=== PATIENT | male | born 1980 | race African-American/Black ===

== ENCOUNTER 2019-11-21 11:38 | Inpatient (IN) | payer OTHER ==
[~2019-11-21] VITALS: Ht 177.8 cm; Wt 97.5 kg
[2019-11-21] MEDS ORDERED: fentaNYL PF VIAL 100 MCG/2 ML VIAL IVP PRN (12:45)
[2019-11-21] MEDS: IV NORMAL SALINE 1000ML BAG 1,000 ML IV SCH ×2 (12:45→23:10)
[2019-11-21] MEDS: ONDANSETRON PF 4 MG/2 ML VIAL. IVP PRN (12:46)
[2019-11-21] MEDS: MORPHINE SULFATE 4 MG/ML VIAL. IV PRN ×4 (13:46→22:43)
[2019-11-21 15:00] VITALS: BP 126/71
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
[2019-11-21] MEDS ORDERED: SALIVA STIMULANT AGENT 44ML SPRAY BOTTLE. PO PRN (15:30)
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
[2019-11-21 19:00] VITALS: BP 124/81
[2019-11-21 23:00] VITALS: BP 158/87
[2019-11-22 03:00] VITALS: BP 141/76
[2019-11-22] MEDS: MORPHINE SULFATE 4 MG/ML VIAL. IV PRN ×7 (03:20→23:04)
[2019-11-22 04:22] LABS: BASO % 0 % (0-3); EOS % 0 % (0-3); HEMATOCRIT 43.5 % (39.0-53.0); HEMOGLOBIN 14.7 g/dL (13.0-17.5); LYMPH # 0.8 x10^3/uL (1.0-4.8); LYMPH % 9 % (24-48); MEAN CORPUSCULAR HEMOGLOBIN 32 pg (25-35); MEAN CORPUSCULAR HGB CONC 34 g/dL (31-37); MEAN CORPUSCULAR VOLUME 94 fL (79-100); MONO # 0.7 x10^3/uL (0.0-1.1); MONO % 8 % (0-9); NEUT # 7.5 x10^3/uL (1.8-7.7); NEUT % 82 % (31-73); PLATELET COUNT 162 x10^3/uL (140-400); RED BLOOD COUNT 4.64 x10^6/uL (4.30-5.70); RED CELL DISTRIBUTION WIDTH 13.6 % (11.5-14.5); WHITE BLOOD COUNT 9.1 x10^3/uL (4.0-11.0)
[2019-11-22 04:49] LABS: ALBUMIN 3.2 g/dL (3.4-5.0); ALBUMIN/GLOBULIN RATIO 0.9 (1.0-1.7); CALCIUM 8.5 mg/dL (8.5-10.1); GFR 101.2; POTASSIUM 3.7 mmol/L (3.5-5.1); TOTAL BILIRUBIN 0.6 mg/dL (0.2-1.0); TOTAL PROTEIN 6.9 g/dL (6.4-8.2)
[2019-11-22 07:00] VITALS: BP 135/86
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
--- NOTE | 2019-11-22 08:38 | PDOC ---
DARNELL ALCALA [employer] SYSTEMS TECHNICIAN 11/22/19 0838: SURGICAL PROGRESS NOTE Subjective no flatus or stool pain is a little better Vital Signs Vital Signs Date Time Temp Pulse Resp B/P (MAP) Pulse Ox O2 Delivery O2 Flow Rate FiO2 11/22/19 07:58 Room Air 11/22/19 06:26 14 98 11/22/19 03:00 98.2 87 141/76 (97) 98.2 I&O Intake and Output 11/22/19 07:00 Intake Total 500 ml Output Total 300 ml Balance 200 ml Intake Other 500 ml Output Gastric Drainage Total 300 ml # Voids 4 General: Alert, Oriented X3, Cooperative HEENT: Other (ng in place) Abdomen: Soft, Other (mildly distended ) Labs Laboratory Tests Test 11/22/19 02:50 White Blood Count 9.1 x10^3/uL (4.0-11.0) Red Blood Count 4.64 x10^6/uL (4.30-5.70) Hemoglobin 14.7 g/dL (13.0-17.5) Hematocrit 43.5 % (39.0-53.0) Mean Corpuscular Volume 94 fL (79-100) Mean Corpuscular Hemoglobin 32 pg (25-35) Mean Corpuscular Hemoglobin Concent 34 g/dL (31-37) Red Cell Distribution Width 13.6 % (11.5-14.5) Platelet Count 162 x10^3/uL (140-400) Neutrophils (%) (Auto) 82 % (31-73) Lymphocytes (%) (Auto) 9 % (24-48) Monocytes (%) (Auto) 8 % (0-9) Eosinophils (%) (Auto) 0 % (0-3) Basophils (%) (Auto) 0 % (0-3) Neutrophils # (Auto) 7.5 x10^3/uL (1.8-7.7) Lymphocytes # (Auto) 0.8 x10^3/uL (1.0-4.8) Monocytes # (Auto) 0.7 x10^3/uL (0.0-1.1) Eosinophils # (Auto) 0.0 x10^3/uL (0.0-0.7) Basophils # (Auto) 0.0 x10^3/uL (0.0-0.2) Sodium Level 138 mmol/L (136-145) Potassium Level 3.7 mmol/L (3.5-5.1) Chloride Level 102 mmol/L (98-107) Carbon Dioxide Level 29 mmol/L (21-32) Anion Gap 7 (6-14) Blood Urea Nitrogen 15 mg/dL (8-26) Creatinine 1.0 mg/dL (0.7-1.3) Estimated GFR (Cockcroft-Gault) 101.2 BUN/Creatinine Ratio 15 (6-20) Glucose Level 104 mg/dL (70-99) Calcium Level 8.5 mg/dL (8.5-10.1) Total Bilirubin 0.6 mg/dL (0.2-1.0) Aspartate Amino Transf (AST/SGOT) 30 U/L (15-37) Alanine Aminotransferase (ALT/SGPT) 43 U/L (16-63) Alkaline Phosphatase 80 U/L (46-116) Total Protein 6.9 g/dL (6.4-8.2) Albumin 3.2 g/dL (3.4-5.0) Albumin/Globulin Ratio 0.9 (1.0-1.7) Laboratory Tests Test 11/22/19 02:50 White Blood Count 9.1 x10^3/uL (4.0-11.0) Red Blood Count 4.64 x10^6/uL (4.30-5.70) Hemoglobin 14.7 g/dL (13.0-17.5) Hematocrit 43.5 % (39.0-53.0) Mean Corpuscular Volume 94 fL (79-100) Mean Corpuscular Hemoglobin 32 pg (25-35) Mean Corpuscular Hemoglobin Concent 34 g/dL (31-37) Red Cell Distribution Width 13.6 % (11.5-14.5) Platelet Count 162 x10^3/uL (140-400) Neutrophils (%) (Auto) 82 % (31-73) Lymphocytes (%) (Auto) 9 % (24-48) Monocytes (%) (Auto) 8 % (0-9) Eosinophils (%) (Auto) 0 % (0-3) Basophils (%) (Auto) 0 % (0-3) Neutrophils # (Auto) 7.5 x10^3/uL (1.8-7.7) Lymphocytes # (Auto) 0.8 x10^3/uL (1.0-4.8) Monocytes # (Auto) 0.7 x10^3/uL (0.0-1.1) Eosinophils # (Auto) 0.0 x10^3/uL (0.0-0.7) Basophils # (Auto) 0.0 x10^3/uL (0.0-0.2) Sodium Level 138 mmol/L (136-145) Potassium Level 3.7 mmol/L (3.5-5.1) Chloride Level 102 mmol/L (98-107) Carbon Dioxide Level 29 mmol/L (21-32) Anion Gap 7 (6-14) Blood Urea Nitrogen 15 mg/dL (8-26) Creatinine 1.0 mg/dL (0.7-1.3) Estimated GFR (Cockcroft-Gault) 101.2 BUN/Creatinine Ratio 15 (6-20) Glucose Level 104 mg/dL (70-99) Calcium Level 8.5 mg/dL (8.5-10.1) Total Bilirubin 0.6 mg/dL (0.2-1.0) Aspartate Amino Transf (AST/SGOT) 30 U/L (15-37) Alanine Aminotransferase (ALT/SGPT) 43 U/L (16-63) Alkaline Phosphatase 80 U/L (46-116) Total Protein 6.9 g/dL (6.4-8.2) Albumin 3.2 g/dL (3.4-5.0) Albumin/Globulin Ratio 0.9 (1.0-1.7) Assessment/Plan sbo plan SBFT today BERTA SWANSON MD 11/22/19 1424: SURGICAL PROGRESS NOTE Assessment/Plan Pt seen and examined. Agree with Ms. Alcala's note Pt feels a little better, passed some flatus abd soft, mild TTP SBFT ungoing DARNELL ALCALA APRN Nov 22, 2019 08:38 BERTA SWANSON MD Nov 22, 2019 14:24
[2019-11-22] MEDS ORDERED: CONTRAST GIVEN. MC PRN (08:45)
[2019-11-22] MEDS ORDERED: IOHEXOL 300 MG/ML 100ML VIAL. PO ONE (08:45)
--- NOTE | 2019-11-22 10:19 | RAD ---
AP abdomen radiograph 11/22/2019 CLINICAL HISTORY: History of small bowel obstruction. Two AP supine digital radiographs of the abdomen/pelvis were obtained. Comparison is made to patient's CT scan of the abdomen and pelvis dated 11/21/2019. Air and stool are seen throughout the colon. Air distention of proximal small bowel loops is seen consistent with the patient's history of a small bowel obstruction. This is not significantly changed. Calcifications are seen within the pelvis consistent with phleboliths. The osseous structures are unchanged. IMPRESSION: Findings consistent with a small bowel obstruction, unchanged. Electronically signed by: Claudy English MD (11/22/2019 10:17 AM) [id number]
[2019-11-22 11:00] VITALS: BP 162/103
[2019-11-22] MEDS: IV NORMAL SALINE 1000ML BAG 1,000 ML IV SCH ×2 (11:59→18:11)
--- NOTE | 2019-11-22 14:07 | NUR ---
SW following. Discussed with RN. RN advised pt is from a [facility] pt advised it is still [facility] [place] [facility], and [place] [facility] [place]. RN advised pt's therapeutic case manager, Emily will call at various times to ensure is still here, and will apparently call SW too. Per [facility] pt works 40 hours a week ($14). Pt having imaging done today. SW will continue to follow.
[2019-11-22 15:00] VITALS: BP 132/88
--- NOTE | 2019-11-22 17:48 | RAD ---
Examination: SMALL BOWEL SERIES History: Small bowel obstruction Comparison/Correlation: 11/21/2019 CT abdomen and pelvis with contrast Findings: Small quantity of Omnipaque provided via the NG tube is noted within the gastric fundus on the initial image. The nasogastric tube is not evident involving the lower thoracic esophagus or stomach. Scattered densities which may represent retained contrast within small bowel from previous oral contrast administration noted. Fluoroscopy was not utilized for this exam and no fluoroscopic images were acquired. A total 13 overhead images were acquired. The patient consumed the Omnipaque orally. The distal tip of the NG tube is at the superior cervical esophageal level. No infiltrate involving the partially visualized lung higuera. Distention of the stomach and numerous small bowel loops is evident. Contrast does not progress beyond the right lower quadrant small bowel despite imaging up to 6 hours and 15 minutes. No significant change in transit of bowel is noted since the 1 hour image other than progressive increase in distention of the small bowel and stomach. On the final image obtained at 6 hours and 15 minutes, the stomach is very distended with contrast. Impression: Findings compatible with high-grade right lower quadrant small bowel obstruction. The stomach is very distended with contrast on the final image acquired. The patient's nurse Karen was informed at approximately 4:45 PM on the day of exam regarding the need for an appropriately placed NG tube tube followed by suctioning to reduce the risk of aspiration. Electronically signed by: Ryne Kapoor MD (11/22/2019 5:45 PM) [facility]
[2019-11-22 19:00] VITALS: BP 148/92
--- NOTE | 2019-11-22 22:45 | RAD ---
KUB INDICATION: Nasogastric tube given. COMPARISON: Small bowel series 11/22/2019. FINDINGS: Multiple dilated loops of small bowel measuring up to 4 producing diameter, similar to the prior exam. No free air on this limited supine image. Limited view of the lower chest demonstrates no acute abnormality. IMPRESSION: Nasogastric tube is not visualized. Multiple dilated loops of small bowel similar to the prior exam. Electronically signed by: Carlyle Seaman MD (11/22/2019 10:42 PM) [id number]
[2019-11-22 23:00] VITALS: BP 153/99
[2019-11-23] MEDS: MORPHINE SULFATE 4 MG/ML VIAL. IV PRN ×9 (02:16→22:59)
[2019-11-23] MEDS: ONDANSETRON PF 4 MG/2 ML VIAL. IVP PRN (02:20)
[2019-11-23 03:00] VITALS: BP 140/94
[2019-11-23] MEDS: IV NORMAL SALINE 1000ML BAG 1,000 ML IV SCH ×2 (04:30→14:57)
--- NOTE | 2019-11-23 05:30 | NUR ---
Vomited 1000cc thin green emesis. Refused NG tube. "Actually, I feel better after I threw up."
--- NOTE | 2019-11-23 06:46 | NUR ---
ALVARO ordered for staging technician request.
[2019-11-23 07:00] VITALS: BP 122/87
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
--- NOTE | 2019-11-23 09:53 | NUR ---
SW following. Discussed with RN. Pt refusing NG tube. RN advised pt not ready to discharge today. SW will continue to follow.
--- NOTE | 2019-11-23 09:57 | PDOC ---
DARNELL MAY MACHINE REBUILDER 11/23/19 0957: SURGICAL PROGRESS NOTE Subjective vomiting, ng displaced minimal flatus, no stool Vital Signs Vital Signs Date Time Temp Pulse Resp B/P (MAP) Pulse Ox O2 Delivery O2 Flow Rate FiO2 11/23/19 08:27 94 11/23/19 07:00 97.9 76 18 122/87 (99) Room Air 97.9 I&O Intake and Output 11/23/19 07:00 Intake Total 1300 ml Output Total 1000 ml Balance 300 ml Intake Oral 100 ml Blood Product IV Normal Saline Flush 1200 ml Emesis 1000 ml # Voids 1 General: Alert, Oriented X3, Cooperative Abdomen: Other (distended ) Labs Laboratory Tests Test 11/22/19 02:50 White Blood Count 9.1 x10^3/uL (4.0-11.0) Red Blood Count 4.64 x10^6/uL (4.30-5.70) Hemoglobin 14.7 g/dL (13.0-17.5) Hematocrit 43.5 % (39.0-53.0) Mean Corpuscular Volume 94 fL (79-100) Mean Corpuscular Hemoglobin 32 pg (25-35) Mean Corpuscular Hemoglobin Concent 34 g/dL (31-37) Red Cell Distribution Width 13.6 % (11.5-14.5) Platelet Count 162 x10^3/uL (140-400) Neutrophils (%) (Auto) 82 % (31-73) Lymphocytes (%) (Auto) 9 % (24-48) Monocytes (%) (Auto) 8 % (0-9) Eosinophils (%) (Auto) 0 % (0-3) Basophils (%) (Auto) 0 % (0-3) Neutrophils # (Auto) 7.5 x10^3/uL (1.8-7.7) Lymphocytes # (Auto) 0.8 x10^3/uL (1.0-4.8) Monocytes # (Auto) 0.7 x10^3/uL (0.0-1.1) Eosinophils # (Auto) 0.0 x10^3/uL (0.0-0.7) Basophils # (Auto) 0.0 x10^3/uL (0.0-0.2) Sodium Level 138 mmol/L (136-145) Potassium Level 3.7 mmol/L (3.5-5.1) Chloride Level 102 mmol/L (98-107) Carbon Dioxide Level 29 mmol/L (21-32) Anion Gap 7 (6-14) Blood Urea Nitrogen 15 mg/dL (8-26) Creatinine 1.0 mg/dL (0.7-1.3) Estimated GFR (Cockcroft-Gault) 101.2 BUN/Creatinine Ratio 15 (6-20) Glucose Level 104 mg/dL (70-99) Calcium Level 8.5 mg/dL (8.5-10.1) Total Bilirubin 0.6 mg/dL (0.2-1.0) Aspartate Amino Transf (AST/SGOT) 30 U/L (15-37) Alanine Aminotransferase (ALT/SGPT) 43 U/L (16-63) Alkaline Phosphatase 80 U/L (46-116) Total Protein 6.9 g/dL (6.4-8.2) Albumin 3.2 g/dL (3.4-5.0) Albumin/Globulin Ratio 0.9 (1.0-1.7) Problem List SBO--imaging still concerning for ongoing obstruction will review with BERTA Henderson MD 11/23/19 1104: SURGICAL PROGRESS NOTE Assessment/Plan Pt seen and examined. Agree with Ms. May's note Pt with slightly less pain and passing some flatus, but no stool XR without advancement of contrast will recheck KUB in AM, if not improved plan DARNELL Cortez APRN Nov 23, 2019 09:57 BERTA SWANSON MD Nov 23, 2019 11:04
[2019-11-23 11:00] VITALS: BP 129/90
[2019-11-23 15:00] VITALS: BP 144/89
--- NOTE | 2019-11-23 15:35 | RAD ---
Examination: KUB History: Small bowel obstruction Comparison/Correlation: 11/22/2019 exam Findings: Frontal supine KUB views of the abdomen were obtained. Significant distention of the stomach with contrast is again identified although it is somewhat decreased compared to the previous day. Distended small bowel again is seen. Contrast is not identified within the colon. No significant transit of contrast delineated. Impression: High-grade small bowel obstruction. Electronically signed by: Ryne Kapoor MD (11/23/2019 3:32 PM) [facility]
--- NOTE | 2019-11-23 18:37 | NUR ---
1700 emptied patient emesis bucket. 1200cc dark green/brown liquid emesis with stool odor.
[2019-11-23 19:00] VITALS: BP 124/80
[2019-11-23 23:00] VITALS: BP 116/77
[2019-11-24] VITALS (13 sets, daily range): BP systolic 117–147; BP diastolic 77–89
[2019-11-24] MEDS: MORPHINE SULFATE 4 MG/ML VIAL. IV PRN ×3 (01:11→07:18)
[2019-11-24] MEDS: fentaNYL PF VIAL 100 MCG/2 ML VIAL IVP PRN (02:51)
[2019-11-24] MEDS: IV NORMAL SALINE 1000ML BAG 1,000 ML IV SCH ×5 (02:52→21:05)
--- NOTE | 2019-11-24 06:10 | NUR ---
1600 cc of pea green emisis from Pt this morning. Pt taking medication for pain.
[2019-11-24] MEDS ORDERED: IV RINGERS,LACTATED 1000ML 1,000 ML IV SCH (07:00)
[2019-11-24] MEDS ORDERED: PROCHLORPERAZINE 10 MG/2 ML VIAL. IV PRN (07:00)
[2019-11-24] MEDS ORDERED: fentaNYL PF VIAL 100 MCG/2 ML VIAL IV PRN ×2 (07:00)
[2019-11-24] MEDS ORDERED: ONDANSETRON PF 4 MG/2 ML VIAL. IV PRN (07:00)
[2019-11-24] MEDS ORDERED: HYDROmorphone 2 MG/ML VIAL IV PRN (07:00)
[2019-11-24] MEDS ORDERED: MORPHINE SULFATE 2 MG/ML VIAL. IV PRN (07:00)
[2019-11-24] MEDS ORDERED: LIDOCAINE 1% PF 2 ML VIAL. ID PRN (07:00)
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
--- NOTE | 2019-11-24 08:56 | NUR ---
SW following. Discussed with RN. Pt having surgery today. RN advised no SW needs at this time. SW will continue to follow.
--- NOTE | 2019-11-24 11:14 | NUR ---
Non admin NS on EMAR current bag still infusing.
[2019-11-24] MEDS ORDERED: cefOXitin SODIUM IV Push 2 GM VIAL. IVP ONE (12:15)
--- NOTE | 2019-11-24 12:15 | PDOC ---
SURGICAL PROGRESS NOTE Subjective Pre-Op Note 39 yo M with SBO. Pt without improvement, N/V, min flatus, no stool KUB without significant movement of contrast. TO OR for exploratory laparotomy, lysis of adhesions, possible bowel resection. R/B/A d/w pt . Risks, including, but not limited to: bleeding, infection, damage to surrounding structures, risk of anesthesia, risk of . He appears to understand, his questions are answered and he elects to proceed. Vital Signs Vital Signs Date Time Temp Pulse Resp B/P (MAP) Pulse Ox O2 Delivery O2 Flow Rate FiO2 11/24/19 10:52 98.2 97 16 117/77 (90) 96 Room Air 98.2 I&O Intake and Output 11/24/19 07:00 Output Total 1200 ml Balance -1200 ml Emesis 1200 ml # Voids 4 BERTA SWANSON MD Nov 24, 2019 12:15
--- NOTE | 2019-11-24 12:55 | RAD ---
Examination: ABDOMEN SUPINE UPRIGHT History: Small bowel obstruction Comparison/Correlation: 11/23/2019 KUB Findings: Supine and upright views of the abdomen were obtained. Partially visualized lung bases are clear. Contrast is noted within the stomach and multiple loops of small bowel. No extraluminal gas identified. Contrast is not identified within colon or rectum. Impression: High-grade small bowel obstruction. Mild decrease in the distention of small bowel compared to the prior exam. Electronically signed by: Ryne Kapoor MD (11/24/2019 12:52 PM) [facility]
[2019-11-24] MEDS ORDERED: fentaNYL PF VIAL 100 MCG/2 ML VIAL ONE ×2 (15:07→16:12)
[2019-11-24] MEDS ORDERED: SEVOFLURANE > 120 MINUTES. IH ONE (15:07)
[2019-11-24] MEDS ORDERED: ROCURONIUM 50 MG/5 ML VIAL. ONE (15:07)
[2019-11-24] MEDS ORDERED: NEOSTIGMINE METHYLSULFATE 5 MG/5 ML SYRINGE. ONE (15:07)
[2019-11-24] MEDS ORDERED: ONDANSETRON PF 4 MG/2 ML VIAL. ONE (15:08)
[2019-11-24] MEDS ORDERED: MIDAZOLAM HCL/PF 2 MG/2 ML VIAL. ONE (15:08)
[2019-11-24] MEDS ORDERED: KETOROLAC 30 MG/ML VIAL. ONE (15:08)
[2019-11-24] MEDS ORDERED: GLYCOPYRROLATE 1 MG/5 ML VIAL. ONE (15:08)
[2019-11-24] MEDS ORDERED: DEXAMETHASONE SOD PHOS 4 MG/ML VIAL ONE ×3 (15:08→16:49)
[2019-11-24] MEDS ORDERED: PROPOFOL 20 ML IV ONE (15:08)
[2019-11-24] MEDS ORDERED: LIDOCAINE 2% PF 5 ML VIAL. ONE (15:08)
[2019-11-24] MEDS ORDERED: SUCCINYLCHOLINE 200 MG/10 ML VIAL. ONE (15:16)
[2019-11-24] MEDS ORDERED: PHENYLEPHRINE in 0.9% NACL PF 1 MG/10 ML SYRINGE. IV ONE (15:42)
[2019-11-24] MEDS ORDERED: ePHEDrine PF IN SALINE 50 MG/10 ML SYRINGE. IV ONE (15:48)
[2019-11-24] MEDS ORDERED: VASOPRESSIN 20 UNIT/ML VIAL. ONE (16:03)
[2019-11-24] MEDS ORDERED: ESMOLOL 100 MG/10 ML VIAL. IVP ONE (16:17)
[2019-11-24] MEDS ORDERED: BUPIVACAINE MPF 0.5% 30 ML VIAL. ONE (16:47)
[2019-11-24] MEDS ORDERED: 0.9 % SODIUM CHLORIDE 20 ML VIAL. IJ ONE ×2 (16:49)
[2019-11-24] MEDS: IV RINGERS,LACTATED 1000ML 1,000 ML IV SCH (16:55)
[2019-11-24] MEDS ORDERED: NALOXONE 0.4 MG/ML VIAL. IV PRN (17:00)
[2019-11-24] MEDS ORDERED: 0.9 % SODIUM CHLORIDE 10 ML DISP.SYRIN. IV PRN (17:00)
[2019-11-24] MEDS: MORPHINE SULFATE/PF 30 ML IV PRN (18:21)
[2019-11-24] MEDS ORDERED: PCA SYRING IV ONE (18:21)
[2019-11-24] MEDS ORDERED: MORPHINE SULFATE IV ONE (18:21)
--- NOTE | 2019-11-24 19:32 | NUR ---
PT returning from surgery via bed. A&O X4, VSS, c/o pain 04/14 ASSESSMENT EXPERT running, IVF infusing, NG in right nare hooked to LIS, SCD's plugged in. Frequent vitals initiated. Call light within reach. Will return to monitor.
--- NOTE | 2019-11-24 20:54 | PDOC4 ---
OPERATIVE NOTE Date: Date: Nov 24, 2019 Pre-Op Diagnosis: Small bowel obstruction Post-Op Diagnosis: same Procedure Performed: Exploratory laparotomy, lysis of adhesions Surgeon: Naseem Swanson Anesthesia Type: GETA Blood Loss: 50 Specimans Obtained: none Findings: omental adhesions causing internal hernia with resultant small bowel obstruction, viable bowel throughout Complications: none Operative Note: After obtaining informed consent, patient was taken to OR, induced under GETA and prepped in the usual fashion. Previous midline scar was excised with cautery. Fascia divided sharply in midline. Adhesions were noted and these were taken down sharply. Abdominal cavity was explored. Stomach was normal with NGT in proper positioning. Liver normal. Small bowel was run from ligament of treitz to terminal ileum. Loop of small bowel within internal hernia created by omental adhesion. This was taken down using cautery, resulting in resolution of obstruction and improved viability of bowel. Evidence of previous small bowel anastomosis. Appendix normal. Colon normal throughout. Sigmoid was decompressed. No evidence of other pathology or bleeding at time of closure. Fascia repaired with 0 looped PDS. Skin repaired with 3 0 vicryl and 4 0 monocryl. Dressing applied. Patient tolerated procedure well and sent to PACU in stable condition. All counts correct. BERTA SWANSON MD Nov 24, 2019 20:54
--- NOTE | 2019-11-24 21:42 | RAD ---
PROCEDURE: KUB STUDY DATE: 11/24/2019 CLINICAL INDICATION / HISTORY: Postop abdominal operation.. TECHNIQUE: Single AP image of the abdomen was obtained. COMPARISON: 11/23/2019 abdomen x-rays FINDINGS: An enteric tube has been placed. It terminates over the epigastrium, in the expected location of the gastric body. There is interval decrease in density of opacification of the bowel minimal scattered intracolonic contrast material noted. Although a few distended small bowel loops are still seen, distention of bowel loops evident previously has improved in the interval. No free air. IMPRESSION: Improving findings of small bowel obstruction following placement of an enteric tube. These have not fully resolved yet Electronically signed by: Khai Frias MD (11/24/2019 9:39 PM) [id number]
[2019-11-25] MEDS: IV RINGERS,LACTATED 1000ML 1,000 ML IV SCH ×2 (02:55→12:55)
[2019-11-25 03:00] VITALS: BP 136/85
[2019-11-25 04:02] LABS: BASO % 0 % (0-3); EOS % 0 % (0-3); HEMATOCRIT 42.3 % (39.0-53.0); HEMOGLOBIN 14.6 g/dL (13.0-17.5); LYMPH # 0.4 x10^3/uL (1.0-4.8); LYMPH % 8 % (24-48); MEAN CORPUSCULAR HEMOGLOBIN 32 pg (25-35); MEAN CORPUSCULAR HGB CONC 35 g/dL (31-37); MEAN CORPUSCULAR VOLUME 93 fL (79-100); MONO # 0.7 x10^3/uL (0.0-1.1); MONO % 13 % (0-9); NEUT # 4.2 x10^3/uL (1.8-7.7); NEUT % 79 % (31-73); PLATELET COUNT 199 x10^3/uL (140-400); RED BLOOD COUNT 4.55 x10^6/uL (4.30-5.70); RED CELL DISTRIBUTION WIDTH 13.8 % (11.5-14.5); WHITE BLOOD COUNT 5.3 x10^3/uL (4.0-11.0)
[2019-11-25 04:26] LABS: CALCIUM 8.5 mg/dL (8.5-10.1); CREATININE 1.1 mg/dL (0.7-1.3); GFR 90.6; POTASSIUM 3.7 mmol/L (3.5-5.1)
[2019-11-25] MEDS: ENOXAPARIN 40 MG/0.4 ML SYRINGE. SQ SCH ×2 (06:13→21:01)
[2019-11-25] MEDS: IV NORMAL SALINE 1000ML BAG 1,000 ML IV SCH ×3 (06:24→16:55)
[2019-11-25 07:00] VITALS: BP 112/68
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
[2019-11-25 09:09] LABS: PLT ESTIMATE ADEQUATE (ADEQUATE)
[2019-11-25 11:00] VITALS: BP 108/71
--- NOTE | 2019-11-25 11:24 | PDOC ---
SURGICAL PROGRESS NOTE Subjective no flatus wants ng out and to eat Vital Signs Vital Signs Date Time Temp Pulse Resp B/P (MAP) Pulse Ox O2 Delivery O2 Flow Rate FiO2 11/25/19 07:59 Nasal Cannula 2.0 11/25/19 07:00 98.3 97 20 112/68 (83) 98 98.3 I&O Intake and Output 11/25/19 06:59 Intake Total 1850 ml Output Total 650 ml Balance 1200 ml Intake Oral 50 ml IV Total 1800 ml Output Urine Total 600 ml Estimated Blood Loss 50 ml PATIENT HAS A ROBLES: Yes General: Alert, Oriented X3, Cooperative HEENT: Other (NG in place) Abdomen: Soft, Other (dressing with shadowing, some distention ) Labs Laboratory Tests Test 11/25/19 03:25 White Blood Count 5.3 x10^3/uL (4.0-11.0) Red Blood Count 4.55 x10^6/uL (4.30-5.70) Hemoglobin 14.6 g/dL (13.0-17.5) Hematocrit 42.3 % (39.0-53.0) Mean Corpuscular Volume 93 fL (79-100) Mean Corpuscular Hemoglobin 32 pg (25-35) Mean Corpuscular Hemoglobin Concent 35 g/dL (31-37) Red Cell Distribution Width 13.8 % (11.5-14.5) Platelet Count 199 x10^3/uL (140-400) Neutrophils (%) (Auto) 79 % (31-73) Lymphocytes (%) (Auto) 8 % (24-48) Monocytes (%) (Auto) 13 % (0-9) Eosinophils (%) (Auto) 0 % (0-3) Basophils (%) (Auto) 0 % (0-3) Neutrophils # (Auto) 4.2 x10^3/uL (1.8-7.7) Lymphocytes # (Auto) 0.4 x10^3/uL (1.0-4.8) Monocytes # (Auto) 0.7 x10^3/uL (0.0-1.1) Eosinophils # (Auto) 0.0 x10^3/uL (0.0-0.7) Basophils # (Auto) 0.0 x10^3/uL (0.0-0.2) Platelet Estimate Adequate (ADEQUATE) Large Platelets Few Giant Platelets Present Sodium Level 143 mmol/L (136-145) Potassium Level 3.7 mmol/L (3.5-5.1) Chloride Level 105 mmol/L (98-107) Carbon Dioxide Level 31 mmol/L (21-32) Anion Gap 7 (6-14) Blood Urea Nitrogen 26 mg/dL (8-26) Creatinine 1.1 mg/dL (0.7-1.3) Estimated GFR (Cockcroft-Gault) 90.6 Glucose Level 128 mg/dL (70-99) Calcium Level 8.5 mg/dL (8.5-10.1) Laboratory Tests Test 11/25/19 03:25 White Blood Count 5.3 x10^3/uL (4.0-11.0) Red Blood Count 4.55 x10^6/uL (4.30-5.70) Hemoglobin 14.6 g/dL (13.0-17.5) Hematocrit 42.3 % (39.0-53.0) Mean Corpuscular Volume 93 fL (79-100) Mean Corpuscular Hemoglobin 32 pg (25-35) Mean Corpuscular Hemoglobin Concent 35 g/dL (31-37) Red Cell Distribution Width 13.8 % (11.5-14.5) Platelet Count 199 x10^3/uL (140-400) Neutrophils (%) (Auto) 79 % (31-73) Lymphocytes (%) (Auto) 8 % (24-48) Monocytes (%) (Auto) 13 % (0-9) Eosinophils (%) (Auto) 0 % (0-3) Basophils (%) (Auto) 0 % (0-3) Neutrophils # (Auto) 4.2 x10^3/uL (1.8-7.7) Lymphocytes # (Auto) 0.4 x10^3/uL (1.0-4.8) Monocytes # (Auto) 0.7 x10^3/uL (0.0-1.1) Eosinophils # (Auto) 0.0 x10^3/uL (0.0-0.7) Basophils # (Auto) 0.0 x10^3/uL (0.0-0.2) Platelet Estimate Adequate (ADEQUATE) Large Platelets Few Giant Platelets Present Sodium Level 143 mmol/L (136-145) Potassium Level 3.7 mmol/L (3.5-5.1) Chloride Level 105 mmol/L (98-107) Carbon Dioxide Level 31 mmol/L (21-32) Anion Gap 7 (6-14) Blood Urea Nitrogen 26 mg/dL (8-26) Creatinine 1.1 mg/dL (0.7-1.3) Estimated GFR (Cockcroft-Gault) 90.6 Glucose Level 128 mg/dL (70-99) Calcium Level 8.5 mg/dL (8.5-10.1) Assessment/Plan s/p XLap continue NG may need PP due to length of time NPO, defer to IPC DARNELL ALCALA APRN Nov 25, 2019 11:24
[2019-11-25] MEDS ORDERED: PCA SYRING IV ONE (12:48)
[2019-11-25] MEDS: MORPHINE SULFATE/PF 30 ML IV PRN (12:48)
[2019-11-25] MEDS ORDERED: MORPHINE SULFATE IV ONE (12:48)
--- NOTE | 2019-11-25 13:30 | NUR ---
NG clamped. Will return to monitor.
[2019-11-25 15:00] VITALS: BP 147/87
--- NOTE | 2019-11-25 16:00 | NUR ---
Unable to read SPOON MAKER totals, pump reads communication error.
[2019-11-25 19:00] VITALS: BP 141/83
[2019-11-25 23:00] VITALS: BP 138/81
[2019-11-26 03:00] VITALS: BP 128/78
[2019-11-26] MEDS ORDERED: MORPHINE SULFATE IV ONE (03:51)
[2019-11-26] MEDS: MORPHINE SULFATE/PF 30 ML IV PRN (03:51)
[2019-11-26] MEDS ORDERED: PCA SYRING IV ONE (03:51)
[2019-11-26 07:00] VITALS: BP 141/89
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
--- NOTE | 2019-11-26 09:37 | PDOC ---
SURGICAL PROGRESS NOTE Subjective ng clamped, tolerating clears no flatus yet pain managed Vital Signs Vital Signs Date Time Temp Pulse Resp B/P (MAP) Pulse Ox O2 Delivery O2 Flow Rate FiO2 11/26/19 07:00 98.8 112 18 141/89 (106) 98 Room Air 98.8 11/26/19 04:21 2.0 I&O Intake and Output 11/26/19 07:00 Intake Total 1680 ml Output Total 500 ml Balance 1180 ml Intake Oral 1680 ml Gastric Drainage Total 500 ml # Voids 2 General: Alert, Oriented X3, Cooperative Abdomen: Soft, Other (incision c/d/i, no erythema, mildly distended ) Labs Laboratory Tests Test 11/25/19 03:25 White Blood Count 5.3 x10^3/uL (4.0-11.0) Red Blood Count 4.55 x10^6/uL (4.30-5.70) Hemoglobin 14.6 g/dL (13.0-17.5) Hematocrit 42.3 % (39.0-53.0) Mean Corpuscular Volume 93 fL (79-100) Mean Corpuscular Hemoglobin 32 pg (25-35) Mean Corpuscular Hemoglobin Concent 35 g/dL (31-37) Red Cell Distribution Width 13.8 % (11.5-14.5) Platelet Count 199 x10^3/uL (140-400) Neutrophils (%) (Auto) 79 % (31-73) Lymphocytes (%) (Auto) 8 % (24-48) Monocytes (%) (Auto) 13 % (0-9) Eosinophils (%) (Auto) 0 % (0-3) Basophils (%) (Auto) 0 % (0-3) Neutrophils # (Auto) 4.2 x10^3/uL (1.8-7.7) Lymphocytes # (Auto) 0.4 x10^3/uL (1.0-4.8) Monocytes # (Auto) 0.7 x10^3/uL (0.0-1.1) Eosinophils # (Auto) 0.0 x10^3/uL (0.0-0.7) Basophils # (Auto) 0.0 x10^3/uL (0.0-0.2) Platelet Estimate Adequate (ADEQUATE) Large Platelets Few Giant Platelets Present Sodium Level 143 mmol/L (136-145) Potassium Level 3.7 mmol/L (3.5-5.1) Chloride Level 105 mmol/L (98-107) Carbon Dioxide Level 31 mmol/L (21-32) Anion Gap 7 (6-14) Blood Urea Nitrogen 26 mg/dL (8-26) Creatinine 1.1 mg/dL (0.7-1.3) Estimated GFR (Cockcroft-Gault) 90.6 Glucose Level 128 mg/dL (70-99) Calcium Level 8.5 mg/dL (8.5-10.1) Assessment/Plan s/p xlap will dc NG, continue clears until improved bowel function ambulate DARNELL ALCALA APRN Nov 26, 2019 09:37
[2019-11-26 10:54] VITALS: BP 142/93
[2019-11-26] MEDS: IV NORMAL SALINE 1000ML BAG 1,000 ML IV SCH (14:47)
[2019-11-26 15:04] VITALS: BP 163/83
[2019-11-26] MEDS: ONDANSETRON PF 4 MG/2 ML VIAL. IVP PRN ×2 (16:46→23:19)
[2019-11-26] MEDS ORDERED: oxyCODONE/APAP 5/325 1 TAB TABLET PO PRN (18:00)
[2019-11-26] MEDS: oxyCODONE/APAP 5/325 1 TAB TABLET PO PRN ×2 (18:04→23:27)
[2019-11-26 19:00] VITALS: BP 158/105
[2019-11-26 23:00] VITALS: BP 141/93
[2019-11-27] MEDS: IV NORMAL SALINE 1000ML BAG 1,000 ML IV SCH ×3 (00:06→23:39)
[2019-11-27 03:00] VITALS: BP 128/87
[2019-11-27] MEDS: oxyCODONE/APAP 5/325 1 TAB TABLET PO PRN ×2 (06:04→23:06)
[2019-11-27] MEDS: ONDANSETRON PF 4 MG/2 ML VIAL. IVP PRN ×2 (06:04→11:45)
[2019-11-27] MEDS: ENOXAPARIN 40 MG/0.4 ML SYRINGE. SQ SCH (06:44)
[2019-11-27 07:00] VITALS: BP 139/91
--- NOTE | 2019-11-27 08:33 | PDOC ---
DARNELL ALCALA APRN 11/27/19 0833: SURGICAL PROGRESS NOTE Subjective good amount of flatus no n/v a little bloating pain managed ambulating wants more to eat Vital Signs Vital Signs Date Time Temp Pulse Resp B/P (MAP) Pulse Ox O2 Delivery O2 Flow Rate FiO2 11/27/19 07:04 18 95 Room Air 2.0 11/27/19 07:00 99.3 114 139/91 (107) 99.3 I&O Intake and Output 11/27/19 07:00 Intake Total 3230 ml Output Total 1600 ml Balance 1630 ml Intake Oral 1680 ml IV Total 1550 ml Emesis 1600 ml # Voids 3 General: Alert, Oriented X3, Cooperative Abdomen: Soft, Other (mild distended, dressing dry) Assessment/Plan s/p xlap trial fulls, back off if pain, nausea, etc continue ambulating decrease fluids ARMANDO TEJADA MD 11/27/19 1050: SURGICAL PROGRESS NOTE Assessment/Plan Agree with Kiarra assessment and plan DARNELL ALCALA APRN Nov 27, 2019 08:33 ARMANDO TEJADA MD Nov 27, 2019 10:50
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
[2019-11-27 11:00] VITALS: BP 137/81
[2019-11-27] MEDS: METOCLOPRAMIDE HCL 10 MG/2 ML VIAL. IVP PRN (14:07)
[2019-11-27] MEDS: fentaNYL PF VIAL 100 MCG/2 ML VIAL IVP PRN (14:08)
[2019-11-27 15:00] VITALS: BP 157/108
[2019-11-27 19:30] VITALS: BP 144/84
--- NOTE | 2019-11-27 20:23 | NUR ---
Assessment completed. IVF not running at this time. Patient stated "She said I didn't need them." when I asked who she was he said "The doctor." Per report RN stated IVF rate decreased and upon doing rounds with report IVF was not running. Patient not wanting IVF started. I informed Patient that any further emesis he would need IVF restarted. Patient verbalized understanding.
[2019-11-27 23:02] VITALS: BP 142/93
--- NOTE | 2019-11-27 23:45 | NUR ---
Post pain pill given, Patient had 1400 cc green emesis. Patient stated he had "loose greenish colored stool with solid turds in it." IVF running at 50cc/hr. Offered nausea medication. Patient refused. States "My pain is a little better."
[2019-11-28 03:25] VITALS: BP 139/100
[2019-11-28 07:00] VITALS: BP 131/89
[2019-11-28] MEDS: ENOXAPARIN 40 MG/0.4 ML SYRINGE. SQ SCH (07:07)
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
--- NOTE | 2019-11-28 09:35 | NUR ---
Patient has continued to vomit this am 11/28 yellow to green emesis. He has refused nausea medication believing that it makes his worse.
--- NOTE | 2019-11-28 10:00 | PDOC ---
DARNELL ALCALA APRN 11/28/19 1000: SURGICAL PROGRESS NOTE Subjective vomiting overnight feels weak, not ambulating much some loose stools Vital Signs Vital Signs Date Time Temp Pulse Resp B/P (MAP) Pulse Ox O2 Delivery O2 Flow Rate FiO2 11/28/19 07:00 98.3 102 16 131/89 (103) 95 Room Air 98.3 11/27/19 23:06 2.0 I&O Intake and Output 11/28/19 07:00 Intake Total 603 ml Output Total 2900 ml Balance -2297 ml Intake Oral 350 ml IV Total 253 ml Emesis 2900 ml # Voids 2 # Bowel Movements 2 General: Alert, Oriented X3, Cooperative Abdomen: Soft, Other (distended, incision c/d/i, no erythema ) Assessment/Plan will make npo, (sips ok)--PPN PT, needs to ambulate, discussed this with patient check labs ARMANDO TEJADA MD 11/28/19 1037: SURGICAL PROGRESS NOTE Assessment/Plan Agree with [facility] assessment and plan patient has been having some stools vom iting overnight likely due to taken to much by mouth continue supportive care DARNELL ALCALA APRN Nov 28, 2019 10:00 ARMANDO TEJADA MD Nov 28, 2019 10:37
[2019-11-28 10:53] LABS: BASO # 0.1 x10^3/uL (0.0-0.2); BASO % 1 % (0-3); EOS % 0 % (0-3); HEMATOCRIT 46.4 % (39.0-53.0); HEMOGLOBIN 16.4 g/dL (13.0-17.5); LYMPH # 1.4 x10^3/uL (1.0-4.8); LYMPH % 15 % (24-48); MEAN CORPUSCULAR HEMOGLOBIN 33 pg (25-35); MEAN CORPUSCULAR HGB CONC 35 g/dL (31-37); MEAN CORPUSCULAR VOLUME 92 fL (79-100); MONO % 11 % (0-9); NEUT # 7.2 x10^3/uL (1.8-7.7); NEUT % 74 % (31-73); PLATELET COUNT 277 x10^3/uL (140-400); RED BLOOD COUNT 5.04 x10^6/uL (4.30-5.70); RED CELL DISTRIBUTION WIDTH 13.5 % (11.5-14.5); WHITE BLOOD COUNT 9.7 x10^3/uL (4.0-11.0)
[2019-11-28 11:00] VITALS: BP 130/93
[2019-11-28 11:01] LABS: CALCIUM 9.5 mg/dL (8.5-10.1); CREATININE 1.1 mg/dL (0.7-1.3); GFR 90.6; POTASSIUM 3.4 mmol/L (3.5-5.1)
[2019-11-28] MEDS: AA 4.25 %/CALCIUM/LYTES/D5W 1,000 ML IV SCH (11:08)
[2019-11-28] MEDS ORDERED: POTASSIUM BICARB 20 MEQ EFFERVESCENT TABLET. PO ONE (13:30)
[2019-11-28] MEDS: PROCHLORPERAZINE 10 MG/2 ML VIAL. IV PRN ×2 (14:30→20:56)
[2019-11-28 15:00] VITALS: BP 158/109
[2019-11-28 19:55] VITALS: BP 156/100
[2019-11-28] MEDS: MORPHINE SULFATE 4 MG/ML VIAL. IV PRN (20:55)
[2019-11-28 23:00] VITALS: BP 136/88
[2019-11-29] VITALS (7 sets, daily range): BP systolic 130–158; BP diastolic 56–111
[2019-11-29] MEDS: AA 4.25 %/CALCIUM/LYTES/D5W 1,000 ML IV SCH ×2 (00:36→14:32)
[2019-11-29] MEDS: MORPHINE SULFATE 4 MG/ML VIAL. IV PRN ×6 (00:48→21:50)
[2019-11-29] MEDS: PROCHLORPERAZINE 10 MG/2 ML VIAL. IV PRN ×3 (04:52→17:18)
[2019-11-29] MEDS: ENOXAPARIN 40 MG/0.4 ML SYRINGE. SQ SCH (06:14)
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
--- NOTE | 2019-11-29 08:54 | PDOC ---
SURGICAL PROGRESS NOTE Subjective weakness but cleaned up this AM no vomiting stools Vital Signs Vital Signs Date Time Temp Pulse Resp B/P (MAP) Pulse Ox O2 Delivery O2 Flow Rate FiO2 11/29/19 07:35 98.2 101 16 140/104 (116) 98 Room Air 98.2 11/28/19 20:00 2.0 I&O Intake and Output 11/29/19 07:00 Intake Total 380 ml Output Total 1900 ml Balance -1520 ml Intake Oral 380 ml Emesis 1900 ml # Voids 2 General: Alert, Oriented X3, Cooperative Abdomen: Soft, Other (mildly distended, incision c/d/i, no erythema ) Labs Laboratory Tests Test 11/28/19 10:40 White Blood Count 9.7 x10^3/uL (4.0-11.0) Red Blood Count 5.04 x10^6/uL (4.30-5.70) Hemoglobin 16.4 g/dL (13.0-17.5) Hematocrit 46.4 % (39.0-53.0) Mean Corpuscular Volume 92 fL (79-100) Mean Corpuscular Hemoglobin 33 pg (25-35) Mean Corpuscular Hemoglobin Concent 35 g/dL (31-37) Red Cell Distribution Width 13.5 % (11.5-14.5) Platelet Count 277 x10^3/uL (140-400) Neutrophils (%) (Auto) 74 % (31-73) Lymphocytes (%) (Auto) 15 % (24-48) Monocytes (%) (Auto) 11 % (0-9) Eosinophils (%) (Auto) 0 % (0-3) Basophils (%) (Auto) 1 % (0-3) Neutrophils # (Auto) 7.2 x10^3/uL (1.8-7.7) Lymphocytes # (Auto) 1.4 x10^3/uL (1.0-4.8) Monocytes # (Auto) 1.0 x10^3/uL (0.0-1.1) Eosinophils # (Auto) 0.0 x10^3/uL (0.0-0.7) Basophils # (Auto) 0.1 x10^3/uL (0.0-0.2) Sodium Level 136 mmol/L (136-145) Potassium Level 3.4 mmol/L (3.5-5.1) Chloride Level 96 mmol/L (98-107) Carbon Dioxide Level 29 mmol/L (21-32) Anion Gap 11 (6-14) Blood Urea Nitrogen 21 mg/dL (8-26) Creatinine 1.1 mg/dL (0.7-1.3) Estimated GFR (Cockcroft-Gault) 90.6 Glucose Level 144 mg/dL (70-99) Calcium Level 9.5 mg/dL (8.5-10.1) Laboratory Tests Test 11/28/19 10:40 White Blood Count 9.7 x10^3/uL (4.0-11.0) Red Blood Count 5.04 x10^6/uL (4.30-5.70) Hemoglobin 16.4 g/dL (13.0-17.5) Hematocrit 46.4 % (39.0-53.0) Mean Corpuscular Volume 92 fL (79-100) Mean Corpuscular Hemoglobin 33 pg (25-35) Mean Corpuscular Hemoglobin Concent 35 g/dL (31-37) Red Cell Distribution Width 13.5 % (11.5-14.5) Platelet Count 277 x10^3/uL (140-400) Neutrophils (%) (Auto) 74 % (31-73) Lymphocytes (%) (Auto) 15 % (24-48) Monocytes (%) (Auto) 11 % (0-9) Eosinophils (%) (Auto) 0 % (0-3) Basophils (%) (Auto) 1 % (0-3) Neutrophils # (Auto) 7.2 x10^3/uL (1.8-7.7) Lymphocytes # (Auto) 1.4 x10^3/uL (1.0-4.8) Monocytes # (Auto) 1.0 x10^3/uL (0.0-1.1) Eosinophils # (Auto) 0.0 x10^3/uL (0.0-0.7) Basophils # (Auto) 0.1 x10^3/uL (0.0-0.2) Sodium Level 136 mmol/L (136-145) Potassium Level 3.4 mmol/L (3.5-5.1) Chloride Level 96 mmol/L (98-107) Carbon Dioxide Level 29 mmol/L (21-32) Anion Gap 11 (6-14) Blood Urea Nitrogen 21 mg/dL (8-26) Creatinine 1.1 mg/dL (0.7-1.3) Estimated GFR (Cockcroft-Gault) 90.6 Glucose Level 144 mg/dL (70-99) Calcium Level 9.5 mg/dL (8.5-10.1) Assessment/Plan s/p xlap increase activity bowel function improving DARNELL ALCALA APRN Nov 29, 2019 08:54
[2019-11-30] MEDS: AA 4.25 %/CALCIUM/LYTES/D5W 1,000 ML IV SCH ×2 (02:40→11:13)
[2019-11-30] MEDS: PROCHLORPERAZINE 10 MG/2 ML VIAL. IV PRN ×2 (02:46→11:58)
[2019-11-30 03:00] VITALS: BP 128/95
[2019-11-30] MEDS: ENOXAPARIN 40 MG/0.4 ML SYRINGE. SQ SCH (06:26)
[2019-11-30 07:00] VITALS: BP 140/97
[2019-11-30] MEDS: MORPHINE SULFATE 4 MG/ML VIAL. IV PRN (08:33)
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
--- NOTE | 2019-11-30 10:45 | PDOC ---
SURGICAL PROGRESS NOTE Subjective wants to eat and go home overall says he feels better d/w nursing --is still taking frequent IV meds Vital Signs Vital Signs Date Time Temp Pulse Resp B/P (MAP) Pulse Ox O2 Delivery O2 Flow Rate FiO2 11/30/19 09:03 Room Air 11/30/19 07:00 98.1 111 16 140/97 (111) 96 98.1 I&O Intake and Output 11/30/19 07:00 Intake Total 1000 ml Balance 1000 ml IV Total 1000 ml # Voids 4 General: Alert, Oriented X3, Cooperative Abdomen: Soft, Other (distended, incision intact) Assessment/Plan will stop IV meds, orals only can trial soft diet DARNELL ALCALA APRN Nov 30, 2019 10:45
[2019-11-30 11:00] VITALS: BP 149/98
[2019-11-30] MEDS: METOCLOPRAMIDE HCL 10 MG/2 ML VIAL. IVP PRN (13:01)
[2019-11-30] MEDS ORDERED: OXYC1TAB15 PO (13:09)
[2019-11-30] MEDS ORDERED: PROM25TA10 PO (13:09)
[2019-11-30] MEDS ORDERED: PROC25SU23 RC (13:09)
[2019-11-30] MEDS ORDERED: METOCLOPRAMIDE HCL 10 MG/2 ML VIAL. IVP PRN (13:15)
--- NOTE | 2019-11-30 14:16 | NUR ---
SS following up with discharge planning. Pt discharging back to [facility] today. SS phoned and faxed clinical to [facility], ; fax [phone]. [facility] reported that they will transport pt back to facility. Pt's RN notified.
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
== END 2019-11-30 14:25 | disposition home or self-care (01) | DRG 337 ==
LOC: 4 NORTH 11:38
PROVIDERS: ADMIT Internal Medicine; ATTEND Internal Medicine
PROC: 0DN80ZZ Release Small Intestine, Open Approach (ICD-10-PCS; principal; 2019-11-24 16:00)
DX: K56.50 Intestinal adhesions [bands], unspecified as to partial versus complete obstruction (principal); E66.3 Overweight; K46.9 Unspecified abdominal hernia without obstruction or gangrene; Z68.30 Body mass index [BMI] 30.0-30.9, adult
CPT/HCPCS: 36415; 74018; 74021; 74250; 80048; 80053; 85025; A7015; J0171; J0330; J0694; J0780; J1100; J1650; J1885; J2001; J2250; J2270; J2370; J2405; J2704; J2710; J2765; J3010; J3490; J7030; J7120; Q9967; 99285-25; G0378

== ENCOUNTER 2019-12-05 09:18 | Inpatient (IN) | payer OTHER ==
[~2019-12-05] VITALS: Ht 177.8 cm; Wt 95.0 kg
[~2019-12-05 09:18] MED LIST: OXYC1TAB15 PO; PROC25SU23 RC; PROM25TA10 PO
[2019-12-05 09:33] VITALS: BP 168/95
[2019-12-05] MEDS ORDERED: IV NORMAL SALINE 1000ML BAG 1,000 ML IV SCH (10:15)
[2019-12-05] MEDS: MORPHINE SULFATE 2 MG/ML VIAL. IV PRN ×2 (10:22→12:29)
[2019-12-05] MEDS: AA 4.25 %/CALCIUM/LYTES/D5W 1,000 ML IV SCH (11:00)
[2019-12-05 11:28] VITALS: BP 148/94
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
[2019-12-05] MEDS: IV 1/2 NORMAL SALINE 1,000 ML IV SCH (13:15)
[2019-12-05] MEDS ORDERED: BENZOCAINE/MENTHOL LOZENGE. PO PRN (13:15)
--- NOTE | 2019-12-05 14:15 | RAD ---
One view abdomen pelvis 1:36 PM HISTORY: NG tube placement Supine AP view abdomen pelvis COMPARISON: November 24, 2019 NG tube has its distal extent coiled in the fundus of the stomach with its tip directed towards the GE junction. There is multiple dilated air-filled loops of small bowel. There is a relative paucity of colonic bowel gas. There is no obvious free air on this supine view. IMPRESSION: 1. NG tube has its tip in the fundus of the stomach with its tip directed at the GE junction. It may be helpful to advance the NG tube at least 3 cm. 2. Abnormal bowel gas pattern suggests small bowel obstruction and appears worse. Electronically signed by: Talat Cedeño III, MD (12/05/2019 2:12 PM) [id number]
[2019-12-05] MEDS: HYDROmorphone 2 MG/ML VIAL IV PRN ×2 (14:51→20:53)
[2019-12-05] MEDS: PHENOL ORAL SPRAY 177ML BOTTLE. PO PRN (14:52)
[2019-12-05 15:19] VITALS: BP 129/79
--- NOTE | 2019-12-05 17:14 | RAD ---
One view abdomen pelvis 4:49 PM COMPARISON: 1:36 PM HISTORY: Advancement of NG tube The NG tube has been advanced and has its tip in the distal stomach. Is distention of multiple loops of bowel. There is no obvious free air. IMPRESSION: 1. NG tube well-positioned. 2. Abnormal bowel gas pattern suggesting small bowel obstruction seen previously. Electronically signed by: Talat Cedeño III, MD (12/05/2019 5:11 PM) [id number]
[2019-12-05 19:20] VITALS: BP 145/85
[2019-12-05 23:24] VITALS: BP 130/71
[2019-12-06] MEDS: HYDROmorphone 2 MG/ML VIAL IV PRN ×6 (00:08→21:22)
[2019-12-06] MEDS: AA 4.25 %/CALCIUM/LYTES/D5W 1,000 ML IV SCH ×2 (00:38→16:15)
[2019-12-06 03:31] VITALS: BP 131/87
[2019-12-06] MEDS: PHENOL ORAL SPRAY 177ML BOTTLE. PO PRN (05:42)
[2019-12-06 07:59] VITALS: BP 134/85
--- NOTE | 2019-12-06 09:34 | PDOC ---
DARNELL ALCALA APRN 12/06/19 0934: SURGICAL PROGRESS NOTE Subjective some flatus, no stool--reports diarrhea at home no emesis distention better Vital Signs Vital Signs Date Time Temp Pulse Resp B/P (MAP) Pulse Ox O2 Delivery O2 Flow Rate FiO2 12/06/19 09:17 95 Room Air 12/06/19 07:59 98.3 97 18 134/85 (101) 98.3 I&O Intake and Output 12/06/19 07:00 Intake Total 1000 ml Output Total 1270 ml Balance -270 ml Intake Oral 0 ml IV Total 1000 ml Output Urine Total 1270 ml # Voids 1 General: Alert, Oriented X3, Cooperative HEENT: Other (ng in place) Abdomen: Soft, Other (distended, incision healing) Assessment/Plan sbo vs ileus, enteritis will continue NG will check plain films BERTA SWANSON MD 12/06/19 1430: SURGICAL PROGRESS NOTE Assessment/Plan Pt seen and examined. Agree with Ms. Alcala's note Pt does feels improved abd soft will try clamping NGT, not much aspirate KUB pending DARNELL ALCALA APRN Dec 06, 2019 09:34 BERTA SWANSON MD Dec 06, 2019 14:30
[2019-12-06 11:00] VITALS: BP 131/81
[2019-12-06] MEDS: IV 1/2 NORMAL SALINE 1,000 ML IV SCH (11:20)
--- NOTE | 2019-12-06 11:55 | PDOC ---
[employer] PROGRESS NOTE Chief Complaint Chief Complaint SBO History of Present Illness History of Present Illness 12/06/2019 - pt s/p bowel resection for SBO 12/05/2019, pt seen and examined. Pt has no new complaints. Abdominal would is covered, clean, dry, and intact. Discussed pt's care w/ RN. Chart reviewed. IV fluids hanging PPN PRN Zofran Home meds Vitals/I&O Vitals/I&O: Vital Signs Date Time Temp Pulse Resp B/P (MAP) Pulse Ox O2 Delivery O2 Flow Rate FiO2 12/06/19 09:17 95 Room Air 12/06/19 07:59 98.3 97 18 134/85 (101) 98.3 I & O 12/05/19 12/05/19 12/06/19 15:00 23:00 07:00 Intake Total 1000 ml Output Total 700 ml 570 ml Balance -700 ml 430 ml Physical Exam General: Alert, Oriented X3, Cooperative Heart: Regular rate Lungs: Clear Abdomen: Soft, Other (distended, incision healing, hypoactive bowel sounds) Extremities: No clubbing, No cyanosis, No edema Skin: No breakdown Review of Systems Review of Systems: GEN: No unexplained weight loss, fever/chills CV: No chest pain, palpitations PULM: No shortness of breath, cough PSYCH: Denies anxiety Assessment and Plan Assessmemt and Plan SBO, s/p bowel ressection Abdominal would is covered, clean, dry, and intact - wound care IV fluids hanging PPN, defer to surgery on advancement of PRN Zofran Home meds DVT prophylaxis Full Code Comment Review of Relevant I have reviewed the following items james (where applicable) has been applied. Medications: Current Medications Medications (Trade) Dose Ordered Sig/Cristino Route PRN Reason Start Time Stop Time Status Last Admin Dose Admin Sodium Chloride 1,000 ml @ 50 mls/hr Q20H IV 12/05/19 13:15 12/06/19 11:20 Hydromorphone HCl (Dilaudid) 0.5 mg PRN Q3HRS PRN IV pain 12/05/19 13:15 12/06/19 09:17 Phenol (Chloraseptic) 1 spray PRN Q2HR PRN PO SORE THROAT 12/05/19 13:15 12/06/19 05:42 CASTLENIAL K III DO Dec 06, 2019 11:55
[2019-12-06 15:00] VITALS: BP 142/97
--- NOTE | 2019-12-06 17:05 | RAD ---
2 view abdomen pelvis HISTORY: Follow-up small bowel obstruction Supine and upright AP view abdomen pelvis comparison: December 05, 2019 There is multiple dilated air-filled loops of small bowel. There is air and stool in portions the colon. There is an NG tube with its distal extent coiled in the proximal stomach. The diaphragm has been excluded greatly reducing sensitivity for possible free air. IMPRESSION: Mid small bowel obstruction. This appears mildly improved. Electronically signed by: Talat Cedeño III, MD (12/06/2019 5:03 PM) [id number]
[2019-12-06 19:00] VITALS: BP 133/92
[2019-12-06 23:00] VITALS: BP 125/87
[2019-12-07] MEDS: HYDROmorphone 2 MG/ML VIAL IV PRN ×8 (00:45→23:25)
[2019-12-07 03:12] VITALS: BP 128/82
[2019-12-07] MEDS: AA 4.25 %/CALCIUM/LYTES/D5W 1,000 ML IV SCH ×2 (05:54→16:25)
[2019-12-07] MEDS: IV 1/2 NORMAL SALINE 1,000 ML IV SCH (05:55)
[2019-12-07 07:00] VITALS: BP 107/71
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
[2019-12-07 09:51] LABS: BASO % 0 % (0-3); EOS # 0.1 x10^3/uL (0.0-0.7); EOS % 1 % (0-3); HEMATOCRIT 38.7 % (39.0-53.0); HEMOGLOBIN 13.1 g/dL (13.0-17.5); LYMPH # 1.2 x10^3/uL (1.0-4.8); LYMPH % 10 % (24-48); MEAN CORPUSCULAR HEMOGLOBIN 32 pg (25-35); MEAN CORPUSCULAR HGB CONC 34 g/dL (31-37); MEAN CORPUSCULAR VOLUME 94 fL (79-100); MONO # 0.7 x10^3/uL (0.0-1.1); MONO % 6 % (0-9); NEUT # 9.7 x10^3/uL (1.8-7.7); NEUT % 83 % (31-73); PLATELET COUNT 230 x10^3/uL (140-400); RED BLOOD COUNT 4.14 x10^6/uL (4.30-5.70); RED CELL DISTRIBUTION WIDTH 13.6 % (11.5-14.5); WHITE BLOOD COUNT 11.7 x10^3/uL (4.0-11.0)
[2019-12-07 10:16] LABS: ALBUMIN 2.9 g/dL (3.4-5.0); ALBUMIN/GLOBULIN RATIO 0.7 (1.0-1.7); CALCIUM 8.4 mg/dL (8.5-10.1); CREATININE 1.1 mg/dL (0.7-1.3); GFR 90.6; TOTAL BILIRUBIN 0.5 mg/dL (0.2-1.0); TOTAL PROTEIN 6.8 g/dL (6.4-8.2)
[2019-12-07 11:00] VITALS: BP 126/80
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
--- NOTE | 2019-12-07 13:36 | PDOC ---
DARNELL ALCALA OCCUPATIONAL HEALTH NURSING DIRECTOR 12/07/19 1336: SURGICAL PROGRESS NOTE Subjective had 2 stools feels much better ng clamped since yesterday Vital Signs Vital Signs Date Time Temp Pulse Resp B/P (MAP) Pulse Ox O2 Delivery O2 Flow Rate FiO2 12/07/19 13:20 20 92 Room Air 12/07/19 11:00 97.9 97 126/80 (95) 97.9 I&O Intake and Output 12/07/19 07:00 Intake Total 2000 ml Output Total 700 ml Balance 1300 ml Intake Oral 0 ml IV Total 2000 ml Output Urine Total 700 ml # Voids 1 # Bowel Movements 1 General: Alert, Oriented X3, Cooperative Abdomen: Soft, Other (less distened ) Labs Laboratory Tests Test 12/07/19 09:10 White Blood Count 11.7 x10^3/uL (4.0-11.0) Red Blood Count 4.14 x10^6/uL (4.30-5.70) Hemoglobin 13.1 g/dL (13.0-17.5) Hematocrit 38.7 % (39.0-53.0) Mean Corpuscular Volume 94 fL (79-100) Mean Corpuscular Hemoglobin 32 pg (25-35) Mean Corpuscular Hemoglobin Concent 34 g/dL (31-37) Red Cell Distribution Width 13.6 % (11.5-14.5) Platelet Count 230 x10^3/uL (140-400) Neutrophils (%) (Auto) 83 % (31-73) Lymphocytes (%) (Auto) 10 % (24-48) Monocytes (%) (Auto) 6 % (0-9) Eosinophils (%) (Auto) 1 % (0-3) Basophils (%) (Auto) 0 % (0-3) Neutrophils # (Auto) 9.7 x10^3/uL (1.8-7.7) Lymphocytes # (Auto) 1.2 x10^3/uL (1.0-4.8) Monocytes # (Auto) 0.7 x10^3/uL (0.0-1.1) Eosinophils # (Auto) 0.1 x10^3/uL (0.0-0.7) Basophils # (Auto) 0.0 x10^3/uL (0.0-0.2) Sodium Level 134 mmol/L (136-145) Potassium Level 4.0 mmol/L (3.5-5.1) Chloride Level 97 mmol/L (98-107) Carbon Dioxide Level 31 mmol/L (21-32) Anion Gap 6 (6-14) Blood Urea Nitrogen 14 mg/dL (8-26) Creatinine 1.1 mg/dL (0.7-1.3) Estimated GFR (Cockcroft-Gault) 90.6 BUN/Creatinine Ratio 13 (6-20) Glucose Level 105 mg/dL (70-99) Calcium Level 8.4 mg/dL (8.5-10.1) Total Bilirubin 0.5 mg/dL (0.2-1.0) Aspartate Amino Transf (AST/SGOT) 30 U/L (15-37) Alanine Aminotransferase (ALT/SGPT) 94 U/L (16-63) Alkaline Phosphatase 86 U/L (46-116) Total Protein 6.8 g/dL (6.4-8.2) Albumin 2.9 g/dL (3.4-5.0) Albumin/Globulin Ratio 0.7 (1.0-1.7) Laboratory Tests Test 12/07/19 09:10 White Blood Count 11.7 x10^3/uL (4.0-11.0) Red Blood Count 4.14 x10^6/uL (4.30-5.70) Hemoglobin 13.1 g/dL (13.0-17.5) Hematocrit 38.7 % (39.0-53.0) Mean Corpuscular Volume 94 fL (79-100) Mean Corpuscular Hemoglobin 32 pg (25-35) Mean Corpuscular Hemoglobin Concent 34 g/dL (31-37) Red Cell Distribution Width 13.6 % (11.5-14.5) Platelet Count 230 x10^3/uL (140-400) Neutrophils (%) (Auto) 83 % (31-73) Lymphocytes (%) (Auto) 10 % (24-48) Monocytes (%) (Auto) 6 % (0-9) Eosinophils (%) (Auto) 1 % (0-3) Basophils (%) (Auto) 0 % (0-3) Neutrophils # (Auto) 9.7 x10^3/uL (1.8-7.7) Lymphocytes # (Auto) 1.2 x10^3/uL (1.0-4.8) Monocytes # (Auto) 0.7 x10^3/uL (0.0-1.1) Eosinophils # (Auto) 0.1 x10^3/uL (0.0-0.7) Basophils # (Auto) 0.0 x10^3/uL (0.0-0.2) Sodium Level 134 mmol/L (136-145) Potassium Level 4.0 mmol/L (3.5-5.1) Chloride Level 97 mmol/L (98-107) Carbon Dioxide Level 31 mmol/L (21-32) Anion Gap 6 (6-14) Blood Urea Nitrogen 14 mg/dL (8-26) Creatinine 1.1 mg/dL (0.7-1.3) Estimated GFR (Cockcroft-Gault) 90.6 BUN/Creatinine Ratio 13 (6-20) Glucose Level 105 mg/dL (70-99) Calcium Level 8.4 mg/dL (8.5-10.1) Total Bilirubin 0.5 mg/dL (0.2-1.0) Aspartate Amino Transf (AST/SGOT) 30 U/L (15-37) Alanine Aminotransferase (ALT/SGPT) 94 U/L (16-63) Alkaline Phosphatase 86 U/L (46-116) Total Protein 6.8 g/dL (6.4-8.2) Albumin 2.9 g/dL (3.4-5.0) Albumin/Globulin Ratio 0.7 (1.0-1.7) Assessment/Plan dc ng, start clears BERTA SWANSON MD 12/07/192057: SURGICAL PROGRESS NOTE Assessment/Plan Pt seen and examined. Agree with Ms. Alcala's note Pt feels better, NGT out abd soft, NTTP cont supportive care DARNELL ALCALA APRN Dec 07, 2019 13:36 BERTA SWANSON MD Dec 07, 2019 20:58
[2019-12-07 15:00] VITALS: BP 138/71
[2019-12-07 19:00] VITALS: BP 133/81
[2019-12-07 23:00] VITALS: BP 113/80
[2019-12-08] MEDS: IV 1/2 NORMAL SALINE 1,000 ML IV SCH ×2 (01:59→23:14)
[2019-12-08] MEDS: ONDANSETRON PF 4 MG/2 ML VIAL. IVP PRN ×3 (02:00→18:21)
[2019-12-08] MEDS: HYDROmorphone 2 MG/ML VIAL IV PRN ×3 (02:31→09:29)
[2019-12-08 03:00] VITALS: BP 135/99
[2019-12-08] MEDS: PROCHLORPERAZINE 10 MG/2 ML VIAL. IV PRN ×2 (05:34→20:54)
[2019-12-08] MEDS: AA 4.25 %/CALCIUM/LYTES/D5W 1,000 ML IV SCH ×2 (05:35→20:52)
[2019-12-08 07:00] VITALS: BP 118/85
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
--- NOTE | 2019-12-08 08:44 | HP ---
ADMIT DATE: CHIEF COMPLAINT: Abdominal pains, probable small bowel obstruction. HISTORY OF PRESENT ILLNESS: The patient is a pleasant middle-aged male who had a lysis of adhesion 11 days ago. He presented to [facility] complaining of abdominal pain. They did a CAT scan that showed probable small bowel obstruction. He has been transferred here for consultation with General Surgery. PAST MEDICAL HISTORY: Recent lysis of adhesions 11 days ago. ALLERGIES: None. FAMILY HISTORY: Diabetes. SOCIAL HISTORY: Does not drink, smoke or take drugs. MEDICATIONS: Reviewed, please refer to the MRAD. REVIEW OF SYSTEMS: GENERAL: No history of weight change, weakness or fevers. SKIN: No bruising, hair changes or rashes. EYES: No blurred, double or loss of vision. NOSE AND THROAT: No history of nosebleeds, hoarseness or sore throat. HEART: No history of palpitations, chest pain or shortness of breath on exertion. LUNGS: Denies cough, hemoptysis, wheezing or shortness of breath. GASTROINTESTINAL: The patient complains of abdominal pain. GENITOURINARY: No history of frequency, urgency, hesitancy or nocturia. NEUROLOGIC: Denies history of numbness, tingling, tremor or weakness. PSYCHIATRIC: No history of panic, anxiety or depression. ENDOCRINE: No history of heat or cold intolerance, polyuria or polydipsia. EXTREMITIES: Denies muscle weakness, joint pain, pain on walking or stiffness. PHYSICAL EXAMINATION: VITALS: Within normal limits and are stable. GENERAL: No apparent distress. Alert and oriented. HEENT: Normal cephalic atraumatic, external auditory canals are patent. EYES: Extraocular muscles are intact, pupils are equally round and reactive to light and accommodation. MUSKULOSKELETAL: Well developed, well nourished, good range of motion. ENDOCRINE: No thyromegaly was palpated. LYMPHATICS: No cervical chain or axillary nodes were noted. HEMATOPOIETIC: No bruising. NECK: Supple, no JVD, no thyromegaly was noted. LUNGS: Clear to auscultation in all lung higuera without rhonchi or wheezing. HEART: RRR, S1, S2 present. Peripheral pulses intact, no obvious murmurs were noted. ABDOMEN: He has decreased bowel sounds with pain to palpation. EXTREMITIES: Without any cyanosis, clubbing, or edema. Pedal pulses intact, Homans sign is negative. NEUROLOGIC: Normal speech, normal tone. A & O x3, moves all extremities, no obvious focal deficits. PSYCHIATRIC: Normal affect, normal mood. Stable. SKIN: No ulcerations or rashes, good skin turgor, no jaundice. VASCULAR: Good capillary refill, neurovascular bundle appears to be intact. LABORATORY DATA: White count 11.7, hemoglobin 13, platelets 230. Electrolytes: Sodium 134, potassium 4.0, chloride 97, bicarb 31, BUN 14, creatinine 1.1, glucose 105. ASSESSMENT AND PLAN: Postop day 11 lysis of adhesions with a new possible small bowel obstruction. Plan is n.p.o., IV fluids. Consult General Surgery. Trend labs. Deep venous thrombosis prophylaxis. Full code. Home meds. ADRIANA POLLOCK DO DR: HUGO/denis JOB#: [id number] / [id number]
--- NOTE | 2019-12-08 08:50 | PDOC ---
SURGICAL PROGRESS NOTE Subjective Pt feels better, no N/V, kapil clears, hungry, passing flatus and stools Vital Signs Vital Signs Date Time Temp Pulse Resp B/P (MAP) Pulse Ox O2 Delivery O2 Flow Rate FiO2 12/08/19 07:00 98.0 94 14 118/85 (96) 95 Room Air 98.0 I&O Intake and Output 12/08/19 07:00 Intake Total 3620 ml Output Total 550 ml Balance 3070 ml Intake Oral 1620 ml IV Total 2000 ml Output Urine Total 550 ml # Voids 4 General: Alert, Oriented X3, Cooperative, No acute distress Abdomen: Soft, No tenderness Labs Laboratory Tests Test 12/07/19 09:10 White Blood Count 11.7 x10^3/uL (4.0-11.0) Red Blood Count 4.14 x10^6/uL (4.30-5.70) Hemoglobin 13.1 g/dL (13.0-17.5) Hematocrit 38.7 % (39.0-53.0) Mean Corpuscular Volume 94 fL (79-100) Mean Corpuscular Hemoglobin 32 pg (25-35) Mean Corpuscular Hemoglobin Concent 34 g/dL (31-37) Red Cell Distribution Width 13.6 % (11.5-14.5) Platelet Count 230 x10^3/uL (140-400) Neutrophils (%) (Auto) 83 % (31-73) Lymphocytes (%) (Auto) 10 % (24-48) Monocytes (%) (Auto) 6 % (0-9) Eosinophils (%) (Auto) 1 % (0-3) Basophils (%) (Auto) 0 % (0-3) Neutrophils # (Auto) 9.7 x10^3/uL (1.8-7.7) Lymphocytes # (Auto) 1.2 x10^3/uL (1.0-4.8) Monocytes # (Auto) 0.7 x10^3/uL (0.0-1.1) Eosinophils # (Auto) 0.1 x10^3/uL (0.0-0.7) Basophils # (Auto) 0.0 x10^3/uL (0.0-0.2) Sodium Level 134 mmol/L (136-145) Potassium Level 4.0 mmol/L (3.5-5.1) Chloride Level 97 mmol/L (98-107) Carbon Dioxide Level 31 mmol/L (21-32) Anion Gap 6 (6-14) Blood Urea Nitrogen 14 mg/dL (8-26) Creatinine 1.1 mg/dL (0.7-1.3) Estimated GFR (Cockcroft-Gault) 90.6 BUN/Creatinine Ratio 13 (6-20) Glucose Level 105 mg/dL (70-99) Calcium Level 8.4 mg/dL (8.5-10.1) Total Bilirubin 0.5 mg/dL (0.2-1.0) Aspartate Amino Transf (AST/SGOT) 30 U/L (15-37) Alanine Aminotransferase (ALT/SGPT) 94 U/L (16-63) Alkaline Phosphatase 86 U/L (46-116) Total Protein 6.8 g/dL (6.4-8.2) Albumin 2.9 g/dL (3.4-5.0) Albumin/Globulin Ratio 0.7 (1.0-1.7) Laboratory Tests Test 12/07/19 09:10 White Blood Count 11.7 x10^3/uL (4.0-11.0) Red Blood Count 4.14 x10^6/uL (4.30-5.70) Hemoglobin 13.1 g/dL (13.0-17.5) Hematocrit 38.7 % (39.0-53.0) Mean Corpuscular Volume 94 fL (79-100) Mean Corpuscular Hemoglobin 32 pg (25-35) Mean Corpuscular Hemoglobin Concent 34 g/dL (31-37) Red Cell Distribution Width 13.6 % (11.5-14.5) Platelet Count 230 x10^3/uL (140-400) Neutrophils (%) (Auto) 83 % (31-73) Lymphocytes (%) (Auto) 10 % (24-48) Monocytes (%) (Auto) 6 % (0-9) Eosinophils (%) (Auto) 1 % (0-3) Basophils (%) (Auto) 0 % (0-3) Neutrophils # (Auto) 9.7 x10^3/uL (1.8-7.7) Lymphocytes # (Auto) 1.2 x10^3/uL (1.0-4.8) Monocytes # (Auto) 0.7 x10^3/uL (0.0-1.1) Eosinophils # (Auto) 0.1 x10^3/uL (0.0-0.7) Basophils # (Auto) 0.0 x10^3/uL (0.0-0.2) Sodium Level 134 mmol/L (136-145) Potassium Level 4.0 mmol/L (3.5-5.1) Chloride Level 97 mmol/L (98-107) Carbon Dioxide Level 31 mmol/L (21-32) Anion Gap 6 (6-14) Blood Urea Nitrogen 14 mg/dL (8-26) Creatinine 1.1 mg/dL (0.7-1.3) Estimated GFR (Cockcroft-Gault) 90.6 BUN/Creatinine Ratio 13 (6-20) Glucose Level 105 mg/dL (70-99) Calcium Level 8.4 mg/dL (8.5-10.1) Total Bilirubin 0.5 mg/dL (0.2-1.0) Aspartate Amino Transf (AST/SGOT) 30 U/L (15-37) Alanine Aminotransferase (ALT/SGPT) 94 U/L (16-63) Alkaline Phosphatase 86 U/L (46-116) Total Protein 6.8 g/dL (6.4-8.2) Albumin 2.9 g/dL (3.4-5.0) Albumin/Globulin Ratio 0.7 (1.0-1.7) Problem List SBO, improving will try soft diet BERTA SWANSON MD Dec 08, 2019 08:50
[2019-12-08 11:00] VITALS: BP 140/84
[2019-12-08] MEDS: HYDROcodone/APAP 5/325MG 1 TAB TABLET PO PRN ×3 (12:07→23:14)
--- NOTE | 2019-12-08 12:13 | NUR ---
SW following. Discussed with RN, pt upgraded to GI soft diet, is eating and drinking. Anticipate possible discharge tomorrow (12/09/2019) back to [facility] (ph: [phone], fax: [phone]). SW will continue to follow.
[2019-12-08 15:00] VITALS: BP 129/93
[2019-12-08 19:00] VITALS: BP 123/85
[2019-12-08 23:00] VITALS: BP 135/85
[2019-12-09 03:00] VITALS: BP 121/85
[2019-12-09 07:00] VITALS: BP 124/89
--- NOTE | 2019-12-09 08:25 | PDOC ---
SURGICAL PROGRESS NOTE Subjective Pt main c/o is IV, kapil soft diet well, passing loose stools Vital Signs Vital Signs Date Time Temp Pulse Resp B/P (MAP) Pulse Ox O2 Delivery O2 Flow Rate FiO2 12/09/19 07:00 97.7 101 14 124/89 (101) 98 Room Air 97.7 I&O Intake and Output 12/09/19 07:00 Intake Total 2360 ml Balance 2360 ml Intake Oral 360 ml IV Total 2000 ml # Voids 4 General: Alert, Oriented X3, Cooperative, No acute distress Abdomen: Soft, No tenderness Labs Laboratory Tests Test 12/07/19 09:10 White Blood Count 11.7 x10^3/uL (4.0-11.0) Red Blood Count 4.14 x10^6/uL (4.30-5.70) Hemoglobin 13.1 g/dL (13.0-17.5) Hematocrit 38.7 % (39.0-53.0) Mean Corpuscular Volume 94 fL (79-100) Mean Corpuscular Hemoglobin 32 pg (25-35) Mean Corpuscular Hemoglobin Concent 34 g/dL (31-37) Red Cell Distribution Width 13.6 % (11.5-14.5) Platelet Count 230 x10^3/uL (140-400) Neutrophils (%) (Auto) 83 % (31-73) Lymphocytes (%) (Auto) 10 % (24-48) Monocytes (%) (Auto) 6 % (0-9) Eosinophils (%) (Auto) 1 % (0-3) Basophils (%) (Auto) 0 % (0-3) Neutrophils # (Auto) 9.7 x10^3/uL (1.8-7.7) Lymphocytes # (Auto) 1.2 x10^3/uL (1.0-4.8) Monocytes # (Auto) 0.7 x10^3/uL (0.0-1.1) Eosinophils # (Auto) 0.1 x10^3/uL (0.0-0.7) Basophils # (Auto) 0.0 x10^3/uL (0.0-0.2) Sodium Level 134 mmol/L (136-145) Potassium Level 4.0 mmol/L (3.5-5.1) Chloride Level 97 mmol/L (98-107) Carbon Dioxide Level 31 mmol/L (21-32) Anion Gap 6 (6-14) Blood Urea Nitrogen 14 mg/dL (8-26) Creatinine 1.1 mg/dL (0.7-1.3) Estimated GFR (Cockcroft-Gault) 90.6 BUN/Creatinine Ratio 13 (6-20) Glucose Level 105 mg/dL (70-99) Calcium Level 8.4 mg/dL (8.5-10.1) Total Bilirubin 0.5 mg/dL (0.2-1.0) Aspartate Amino Transf (AST/SGOT) 30 U/L (15-37) Alanine Aminotransferase (ALT/SGPT) 94 U/L (16-63) Alkaline Phosphatase 86 U/L (46-116) Total Protein 6.8 g/dL (6.4-8.2) Albumin 2.9 g/dL (3.4-5.0) Albumin/Globulin Ratio 0.7 (1.0-1.7) Problem List SBO, resolving ADAT OK to d/c home f/u PRN BERTA SWANSON MD Dec 09, 2019 08:25
[2019-12-09] MEDS ORDERED: OXYC1TAB15 PO (08:35)
[2019-12-09] MEDS ORDERED: PROM25TA10 PO (08:35)
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
--- NOTE | 2019-12-09 10:00 | NUR ---
SW following. Discussed with RN, PPN has been stopped, pt eating and drinking now. Anticipate possible discharge back to [facility] today. SW will continue to follow.
[2019-12-09 11:00] VITALS: BP 151/95
[2019-12-09] MEDS ORDERED: CLOTRIMAZOLE/BETAMETH 1%-0.05% TOPICAL CREAM 15GM TUBE. TP SCH (12:45)
[2019-12-09] MEDS ORDERED: MAGNESIUM CITRATE 296 ML SOLUTION. PO ONE (12:45)
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
[2019-12-09 15:00] VITALS: BP 132/98
--- NOTE | 2019-12-09 18:40 | NUR ---
DISCHARGE INSTRUCTIONS GIVEN, QUESTIONS AND CONCERNS ANSWERED, PATIENT VERBALIZED UNDERSTANDING OF DISCHARGE INFORMATION INCLUDING TAKING ALL MEDICATIONS INSTRUCTED AND FOLLOWING UP WITH HIS PRIMARY PROVIDER IN 1-2 WEEKS.
--- NOTE | 2019-12-09 19:20 | NUR ---
PATIENT LEAVES THE UNIT ALONGSIDE THIS APPOINTMENT CLERK, EMOTIONAL SUPPORT GIVEN, FOLLOW UP APPOINTMENTS ENCOURAGED.
== END 2019-12-09 19:20 | disposition home or self-care (01) | DRG 392 ==
LOC: 6 SOUTH 09:18 → 5 SOUTH 12-06 09:56
PROVIDERS: ADMIT Family Medicine; ATTEND Family Medicine
PROC: 0D9670Z Drainage of Stomach with Drainage Device, Via Natural or Artificial Opening (ICD-10-PCS; principal; 2019-12-05)
DX: K52.9 Noninfective gastroenteritis and colitis, unspecified (principal); K56.600 Partial intestinal obstruction, unspecified as to cause; K56.7 Ileus, unspecified; Z83.3 Family history of diabetes mellitus; Z90.49 Acquired absence of other specified parts of digestive tract
CPT/HCPCS: 36415; 74018; 74021; 80053; 85025; J0780; J1170; J2270; J2405; J3490; J7030; G0378